=== PATIENT | male | born 1995 | race Caucasian/White ===

== ENCOUNTER 2022-08-13 20:06 | Emergency (ER) | payer OTHER ==
[~2022-08-13] VITALS: Ht 180.3 cm; Wt 100.0 kg
[2022-08-13 20:09] VITALS: BP 148/89
[2022-08-13] MEDS ORDERED: ketorolac trometh inj. 60 MG/2 ML VIAL IM ONE (21:55)
[2022-08-13] MEDS ORDERED: IBUP-1986 PO (21:59)
[2022-08-13] MEDS ORDERED: CYCL-1 PO (22:36)
== END 2022-08-13 22:18 | disposition home or self-care (01) ==
LOC: ER 20:07
DX: S76.011A Strain of muscle, fascia and tendon of right hip, initial encounter (principal); M25.551 Pain in right hip; X58.XXXA Exposure to other specified factors, initial encounter; Y93.89 Activity, other specified; Y92.89 Other specified places as the place of occurrence of the external cause; Y99.8 Other external cause status
CPT/HCPCS: 96372; 99283; J1885

== ENCOUNTER 2023-05-10 00:16 | Emergency (ER) | payer OTHER ==
[~2023-05-10] VITALS: Ht 180.3 cm; Wt 97.7 kg
[~2023-05-10 00:16] MED LIST: CYCL-1 PO; IBUP-1986 PO
[2023-05-10 00:18] VITALS: BP 140/90; PULSE 87; RESP 18; TEMP 97.8; O2SAT 97
== END 2023-05-10 04:02 | disposition home or self-care (01) ==
LOC: ER 00:17
DX: S61.032A Puncture wound without foreign body of left thumb without damage to nail, initial encounter (principal); Z79.899 Other long term (current) drug therapy; Z79.1 Long term (current) use of non-steroidal anti-inflammatories (NSAID); W46.0XXA Contact with hypodermic needle, initial encounter; Y93.89 Activity, other specified; Y92.89 Other specified places as the place of occurrence of the external cause; Y99.8 Other external cause status
CPT/HCPCS: 99283